=== PATIENT | male | born 2000 | race Caucasian/White ===

== ENCOUNTER 2018-09-14 18:39 | Emergency (ER) | payer MEDICAID ==
[~2018-09-14] VITALS: Ht 182.9 cm; Wt 82.7 kg
[2018-09-14 18:46] VITALS: Ht 182.9 cm; Wt 82.7 kg
[2018-09-14 20:45] VITALS: BP 112/61
== END 2018-09-14 20:45 | disposition home or self-care (01) ==
LOC: ED 18:39
DX: T78.1XXA Other adverse food reactions, not elsewhere classified, initial encounter (principal); J45.909 Unspecified asthma, uncomplicated; X58.XXXA Exposure to other specified factors, initial encounter
CPT/HCPCS: J1200; J2930; J3490; J7030